=== PATIENT | female | born 1965 | race Caucasian/White ===

== ENCOUNTER 2019-10-05 07:49 | Day surgery (SDC) | payer BC ==
[~2019-10-05] VITALS: Ht 177.8 cm; Wt 130.6 kg
[~2019-10-05 07:49] MED LIST: JULEBER 28 DAY1 EACH PO; LISINOPRIL20 MG PO
--- NOTE | 2019-10-05 09:40 | NUR ---
10/05/19 0940 Marcella Villanueva 0935 PATIENT ARRIVES TO PACU RESTING WITH EYES CLOSED. OPENS EYES AND ANSWERS QUESTIONS APPROPRIATELY WITH VERBAL STIMULI. RESP EVEN AND UNLABORED, NC AT 2 LITERS, TURNED OFF. DENIES PAIN OR NAUSEA. PASSING GAS. 0940 DR BAROEN AT BEDSIDE TO TALK WITH PATIENT.
--- NOTE | 2019-10-05 17:32 | OR ---
[facility] [address], [place] [address] Signed DATE OF OPERATION: 10/05/2019 SURGEON: Lolis Barone MD PREOPERATIVE DIAGNOSIS: Screening. POSTOPERATIVE DIAGNOSES: 1. Small internal hemorrhoids. 2. Long redundant colon. PROCEDURE: Colonoscopy without biopsy. ESTIMATED BLOOD LOSS: None. INDICATIONS: Markus is a 54-year-old female, 5 feet 10 inches, 288 pounds. She had been referred to me for a screening colonoscopy. She said she has no lower GI complaints. There is no family history of colon cancer or polyps. In the office, I gave her a pamphlet on colonoscopy. We looked at that together along with the risks including, but not limited to gas bloating, crampy abdominal pain, bleeding, perforation requiring surgery, and missed diagnosis. She also understands the need for IV conscious sedation. She had expressed understanding and wished to proceed. PROCEDURE NOTE: Markus was taken into our endoscopy suite and placed in the left lateral decubitus position. She was given IV sedation with a total of 10 mg of Versed and 200 mcg of fentanyl to cover the case. A digital rectal exam was performed and this was unremarkable. The adult colonoscope was introduced and advanced under direct visualization of camera without difficulty. We found that Markus has a long redundant colon. The scope buckled some back in the sigmoid and left colon. We had rotated her into the supine position and then back into the left lateral decubitus position. We used abdominal compression, and we had ran the scope all the way up to the handle itself. We eventually made it into the cecum. Her prep was good. There were a few areas of liquid stool, which I was able to suction out. The scope was slowly withdrawn. We saw no pathology throughout the entire colon or rectum. Upon retroflexion of the scope, she has small internal hemorrhoid columns. After this, the gas was suctioned out, the colonoscope removed. Markus tolerated the procedure quite well. Electronically Signed By: LOLIS BARONE MD 10/05/19 1732 PATIENT NAME: MARKUS BORJA OPERATIVE REPORT DATE OF : 67 REPORT #: [id number] PHYSICIAN: LOLIS BARONE MD PCP: CLARENCE VILLA MD REPORT IS CONFIDENTIAL AND NOT TO BE RELEASED WITHOUT AUTHORIZATION [address] [address] Signed RECOMMENDATIONS: Markus can follow up in 10 years for repeat colonoscopy. Lolis Barone MD ALB/MODL /[id number] cc: MD Clarence Pedro MD Copies: LOLIS BARONE MD, RUSSELL BARR MD ~ Electronically Signed By: LOLIS BARONE MD 10/05/19 1732 PATIENT NAME: MARKUS BORJA OPERATIVE REPORT DATE OF : 67 REPORT #: [id number] PHYSICIAN: LOLIS BARONE MD PCP: CLARENCE VILLA MD REPORT IS CONFIDENTIAL AND NOT TO BE RELEASED WITHOUT AUTHORIZATION
== END 2019-10-05 10:05 | disposition home or self-care (01) ==
LOC: DS 07:49 → OPS 07:49 → DS 09:00 → OPS 10:05
PROVIDERS: Colon & Rectal Surgery
PROC: 0DJD8ZZ Inspection of Lower Intestinal Tract, Via Natural or Artificial Opening Endoscopic (ICD-10-PCS; principal; 2019-10-05 09:00)
DX: Z12.11 Encounter for screening for malignant neoplasm of colon (principal); K64.8 Other hemorrhoids; I10 Essential (primary) hypertension; E03.9 Hypothyroidism, unspecified; E66.9 Obesity, unspecified; Z79.899 Other long term (current) drug therapy
CPT/HCPCS: 99153; G0500; J2250; J3010; J7121